=== PATIENT | male | born 1985 | race Caucasian/White ===

== ENCOUNTER 2020-12-15 08:31 | Inpatient (IN) | payer SELFPAY ==
[~2020-12-15] VITALS: Ht 167.6 cm; Wt 81.0 kg
[2020-12-15] MEDS ORDERED: SODIUM CHLORIDE 0.9% 1,000 ML IV ONE (08:45)
[2020-12-15 09:18] LABS: BASOPHILS % 0.2 % (0.0-2.0); HEMATOCRIT. 34.7 % (42.0-52.0); HEMOGLOBIN. 11.6 g/dL (14.0-18.0); LYMPHOCYTES % 10.8 % (20.0-50.0); MEAN CORPUSCULAR HEMOGLOBIN 29.5 pg (28.0-32.0); MEAN PLATELET VOLUME 7.6 fl (7.4-10.4); PLATELET 162 x1000/uL (130-400); RED BLOOD CELL COUNT 3.94 mill/uL (4.7-6.1); RED CELL DISTRIBUTION WIDTH 14.1 % (11.6-14.6)
[2020-12-15 09:26] LABS: CHLORIDE 88 mEq/L (98-107)
[2020-12-15 09:28] LABS: INR 0.9; PROTHROMBIN TIME 10.2 sec (9.6-11.0)
[2020-12-15 09:46] LABS: ETHANOL BLOOD 577 mg/dL
[2020-12-15 10:36] LABS: CLARITY URINE CLEAR (CLEAR); COLOR URINE YELLOW (YELLOW); KETONES URINE NEGATIVE (NEGATIVE); LEUKOCYTE ESTERASE URINE NEGATIVE (NEGATIVE); NITRITE URINE NEGATIVE (NEGATIVE); OCCULT BLOOD URINE 1+ (NEGATIVE); PROTEIN URINE NEGATIVE (NEGATIVE); SPECIFIC GRAVITY URINE 1.004 (1.005-1.030); UROBILINOGEN URINE 0.2 E.U./dL (0.2-1.0)
[2020-12-15 10:48] LABS: *AMPHETAMINES SCREEN URINE NEGATIVE (NEGATIVE); *BARBITURATES SCREEN URINE NEGATIVE (NEGATIVE); *BENZODIAZEPINES SCREEN URINE NEGATIVE (NEGATIVE); *COCAINE SCREEN URINE NEGATIVE (NEGATIVE); METHADONE URINE SCREEN NEGATIVE (NEGATIVE); OPIATES URINE SCREEN NEGATIVE (NEGATIVE)
[2020-12-15 10:50] LABS: CANNABINOID URINE SCREEN NEGATIVE (NEGATIVE); PHENCYCLIDINE URINE SCREEN NEGATIVE (NEGATIVE)
[2020-12-15 12:22] LABS: CREATINE KINASE 6152 IU/L (39-308)
[2020-12-15] MEDS ORDERED: LORAZEPAM 2MG/ML CPJ IM PRN ×2 (15:00→16:00)
[2020-12-15] MEDS ORDERED: DEXT 5%/0.9% NACL 1,000 ML IV SCH (15:15)
[2020-12-15 15:20] VITALS: BP 114/66
[2020-12-15] MEDS ORDERED: THIAMINE HCL 100MG TABLET PO NR (15:45)
[2020-12-15] MEDS: MULTIVITAMINS,THER W-MINERALS TABLET PO SCH (16:00)
[2020-12-15] MEDS ORDERED: THIAMINE HCL 100MG TABLET PO SCH (16:00)
[2020-12-15] MEDS: DEXT 5%/0.9% NACL 1,000 ML IV SCH (16:41)
[2020-12-15 18:00] VITALS: BP 111/85
[2020-12-15] MEDS: LORAZEPAM 2MG/ML CPJ IV PRN (19:52)
[2020-12-15 20:00] VITALS: BP 114/58
[2020-12-15] MEDS: CHLORDIAZEPOXIDE 25MG CAPSULE PO SCH (22:21)
[2020-12-16] VITALS: BP 121/48
[2020-12-16] MEDS: DEXT 5%/0.9% NACL 1,000 ML IV SCH ×3 (02:00→21:37)
[2020-12-16 04:00] VITALS: BP 122/54
[2020-12-16] MEDS: CHLORDIAZEPOXIDE 25MG CAPSULE PO SCH ×3 (05:02→21:36)
[2020-12-16] MEDS: LORAZEPAM 2MG/ML CPJ IV PRN ×4 (05:07→23:39)
[2020-12-16 07:57] LABS: HEMATOCRIT 31.1 % (42.0-52.0); HEMOGLOBIN 10.7 g/dL (14.0-18.0); MEAN CORPUSCULAR VOLUME 87.6 fL (80.0-94.0); PLATELET 116 x1000/uL (130-400); RED BLOOD CELL COUNT 3.55 mill/uL (4.7-6.1); RED CELL DISTRIBUTION WIDTH 13.9 % (11.6-14.6)
[2020-12-16 08:00] VITALS: BP 137/77
[2020-12-16 08:11] LABS: CHLORIDE 96 mEq/L (98-107)
[2020-12-16] MEDS: MULTIVITAMINS,THER W-MINERALS TABLET PO SCH (09:25)
[2020-12-16] MEDS ORDERED: POTASSIUM CHLORIDE 20MEQ TABLET SR PO NR ×2 (11:11→15:00)
[2020-12-16 12:00] VITALS: BP 134/70
[2020-12-16 16:00] VITALS: BP 159/86
[2020-12-16] MEDS: VANCOMYCIN 1250MG in DEXTROSE 5% WATER 250ML IV SCH ×2 (17:19→21:40)
[2020-12-16 20:00] VITALS: BP 132/84
[2020-12-16] MEDS: GENTAMICIN 0.3% OPHTH DROPS 5ML BOTHEYE SCH ×2 (20:27→23:39)
[2020-12-17] VITALS: BP 123/94
[2020-12-17] MEDS: NYSTATIN 100,000 UNITS/ML 5ML UDC SSW SCH ×4 (00:48→18:03)
[2020-12-17 04:00] VITALS: BP 131/81
[2020-12-17] MEDS: GENTAMICIN 0.3% OPHTH DROPS 5ML BOTHEYE SCH ×5 (04:50→20:00)
[2020-12-17] MEDS: CHLORDIAZEPOXIDE 25MG CAPSULE PO SCH ×3 (05:15→21:46)
[2020-12-17] MEDS: VANCOMYCIN 1250MG in DEXTROSE 5% WATER 250ML IV SCH ×3 (05:15→21:46)
[2020-12-17 07:59] VITALS: BP 132/87
[2020-12-17 08:14] LABS: CHLORIDE 102 mEq/L (98-107)
[2020-12-17] MEDS: MULTIVITAMINS,THER W-MINERALS TABLET PO SCH (08:58)
[2020-12-17] MEDS: DEXT 5%/0.9% NACL 1,000 ML IV SCH ×2 (08:59→18:03)
[2020-12-17 10:01] VITALS: BP 137/77
[2020-12-17] MEDS ORDERED: POTASSIUM CHLORIDE 20MEQ/PACKET PO NR (11:30)
[2020-12-17 12:00] VITALS: BP 114/69
[2020-12-17] MEDS: LORAZEPAM 2MG/ML CPJ IV PRN ×2 (12:34→18:03)
[2020-12-17 14:48] VITALS: BP 122/62
[2020-12-17 16:54] LABS: BASOPHILS % 0.4 % (0.0-2.0); EOSINOPHILS % 1.8 % (0.0-5.0); HEMATOCRIT. 35.7 % (42.0-52.0); HEMOGLOBIN. 11.9 g/dL (14.0-18.0); LYMPHOCYTES % 18.3 % (20.0-50.0); MEAN CORPUSCULAR HEMOGLOBIN 29.7 pg (28.0-32.0); MEAN CORPUSCULAR VOLUME 89.4 fL (80.0-94.0); MEAN PLATELET VOLUME 7.6 fl (7.4-10.4); MONOCYTES % 6.8 % (2.0-8.0); NEUTROPHILS % 72.7 % (40.0-76.0); PLATELET 124 x1000/uL (130-400); RED BLOOD CELL COUNT 3.99 mill/uL (4.7-6.1); RED CELL DISTRIBUTION WIDTH 13.9 % (11.6-14.6)
[2020-12-17 17:11] LABS: CHLORIDE 103 mEq/L (98-107)
[2020-12-18] VITALS: BP 110/66
[2020-12-18] MEDS: GENTAMICIN 0.3% OPHTH DROPS 5ML BOTHEYE SCH ×4 (00:43→12:26)
[2020-12-18] MEDS: NYSTATIN 100,000 UNITS/ML 5ML UDC SSW SCH ×3 (00:43→12:26)
[2020-12-18] MEDS: DEXT 5%/0.9% NACL 1,000 ML IV SCH ×2 (03:14→13:30)
[2020-12-18] MEDS: VANCOMYCIN 1250MG in DEXTROSE 5% WATER 250ML IV SCH ×2 (05:02→13:30)
[2020-12-18] MEDS: CHLORDIAZEPOXIDE 25MG CAPSULE PO SCH ×2 (05:11→13:28)
[2020-12-18 07:38] VITALS: BP 106/65
[2020-12-18 08:00] VITALS: BP 122/79
[2020-12-18] MEDS: MULTIVITAMINS,THER W-MINERALS TABLET PO SCH (09:09)
[2020-12-18 11:15] LABS: CHLORIDE 101 mEq/L (98-107)
[2020-12-18 12:00] VITALS: BP 118/79
[2020-12-18 16:00] VITALS: BP 120/87
== END 2020-12-18 16:25 | disposition left against medical advice (07) | DRG 52 ==
LOC: ER 08:52 → 3WST 11:41 → EDBD 11:41 → ENRESERV 12:15 → 6EST 12-18 00:59
PROVIDERS: ADMIT Family Medicine; ATTEND Family Medicine
DX: G92 Toxic encephalopathy (principal); E11.9 Type 2 diabetes mellitus without complications; E87.1 Hypo-osmolality and hyponatremia; F10.129 Alcohol abuse with intoxication, unspecified; M62.82 Rhabdomyolysis; Z59.0 Homelessness; S50.312A Abrasion of left elbow, initial encounter; S40.811A Abrasion of right upper arm, initial encounter; S70.312A Abrasion, left thigh, initial encounter; S70.311A Abrasion, right thigh, initial encounter; L03.114 Cellulitis of left upper limb; E46 Unspecified protein-calorie malnutrition; S90.822A Blister (nonthermal), left foot, initial encounter; S90.821A Blister (nonthermal), right foot, initial encounter; S02.91XA Unspecified fracture of skull, initial encounter for closed fracture; Z53.29 Procedure and treatment not carried out because of patient's decision for other reasons; X58.XXXA Exposure to other specified factors, initial encounter; Y93.89 Activity, other specified; Y92.89 Other specified places as the place of occurrence of the external cause; Y99.8 Other external cause status; Z68.28 Body mass index [BMI] 28.0-28.9, adult
CPT/HCPCS: 36415; 71045; 73080; 73620; 80048; 80053; 80202; 80305; 80307; 80320; 80329; 81003; 82040; 82550; 82962; 84134; 85025; 85027; 87070; 87077; 87186; 92610; 97162; 99291; J2060; J3370; J7030; J7042; J7060; A4315; G0480

== ENCOUNTER 2020-12-20 01:26 | Emergency (ER) | payer SELFPAY ==
[~2020-12-20] VITALS: Ht 175.3 cm; Wt 73.0 kg
[2020-12-20] MEDS ORDERED: ACETAMINOPHEN 325MG TABLET PO ONE (02:30)
[2020-12-20] MEDS ORDERED: GABA300C MT (04:02)
[2020-12-20 04:20] VITALS: BP 132/80
== END 2020-12-20 04:48 | disposition home or self-care (01) ==
LOC: ER 01:26
DX: E11.621 Type 2 diabetes mellitus with foot ulcer (principal); L97.519 Non-pressure chronic ulcer of other part of right foot with unspecified severity; L97.529 Non-pressure chronic ulcer of other part of left foot with unspecified severity; R00.0 Tachycardia, unspecified; R03.0 Elevated blood-pressure reading, without diagnosis of hypertension
CPT/HCPCS: 93005; 99283